=== PATIENT | male | born 2005 | race Caucasian/White ===

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

== ENCOUNTER 2025-06-24 11:20 | Emergency (ER) | payer BC, SELFPAY ==
--- OUTSIDE RECORDS SUMMARY | 2025-06-24 11:22 | XMS_ITS | Clinical Summary ---
Author Organization [facility] Address [address] [place] [address] Care Team Providers Care Time Clerk Name Role Phone Lizeth Dominguez MD Primary Care Provider Source Comments [facility],non-owned Affiliates and Associated Physician Practices is amultiple site organization consisting of ambulatory clinics and hospital sitesin [place], [place], [place] and [place]. This disclosure is being madepursuant to the Care Everywhere program and may not contain all information available regarding this patient. Last updated 18.[facility] [employer] Allergies No known active allergies Medications * Be aware that medications may not be up to date on this document. Alwaysverify current medications with the patient. No known medications Active Problems Problem Noted Date Diagnosed Date Closed fracture of right distal fibula 9 Social History Tobacco Use Types Packs/Day Years Used Date Smoking Tobacco: Passive Smo ke Exposure - Never Smoker Smokeless Tobacco: Never Sex and Gender Information Value Date Recorded Sex Assigned at Not on file Legal Sex Male 10:55 AM CDT Gender Identity Not on file Sexual Orientation Not on file Last Filed Vital Signs Vital Sign Reading Time Taken Comments Blood Pressure - - Pulse - - Temperature - - Respiratory Rate - - Oxygen Saturation - - Inhaled Oxygen Concentration - - Weight 60.1 kg (132 lb 7.9 oz) 01/20/2019 1:50 P M CDT Height 172 cm (5' 7.72) 01/20/2019 1:50 PM CDT Body Mass Index 20.31 01/20/2019 1:50 PM CDT Plan of Treatment Health Maintenance Due Date Last Done Comments HIV SCREENING 2019 HPV VACCINE (1 - Male 3-dose series) 2019 MENINGOCOCCAL (Group B) VACC INE SHARED DECISION-MAKING (1 of 2 - Standard) 2020 HEPATITIS C SCREENING 08/29/2022 DTAP/TDAP/TD VACCINES (1 - Tdap) 2023 HEPATITIS B VACCINE (1 of 3 - 19+ 3-dose series) 2023 DEPRESSION SCREENING 07/13/2024 COVID-19 VACCINE (1 - 2024-2 6 season) 2025 INFLUENZA VACCINE (#1) 2025 ZOSTER VACCINE (1 of 2) 2054 HIB VACCINE Aged Out No longer eligi ble based on patient's age to complete this topic MENINGOCOCCAL GROUPS A/C/Y/W VACCINE Aged Out No longer eligible b ased on patient's age to complete this topic PNEUMOCOCCAL VACCINE Aged Out No long er eligible based on patient's age to complete this topic Insurance [facility] Care Teams Time Clerk Relationship Specialty Start Date End Date Lizeth Dominguez MD PCP - General Pediatrics 01/20/19
--- OUTSIDE RECORDS SUMMARY | 2025-06-24 11:22 | XMS_ITS | Clinical Summary ---
Author Organization [facility] Address [address] [place] [address] Phone Care Team Providers Care Animal Doctor Name Role Phone Eitan Chahal MD Primary Care Provider Allergies No known active allergies Medications carbamide peroxide (DEBROX) 6.5 % Solution Place 5 Drops in affected ear(s) 2 times daily as needed (ear wax). 15 mL 03/22/2022 Active ketorolac (TORADOL) 10 MG Tablet Take 1 Tablet by mouth every 6 hours as needed for Moderate or more severe pain. 20 Tablet 03/20/2023 Active Active Problems No known active problems Social History Tobacco Use Types Packs/Day Years Used Date Smoking Tobacco: Never Smokeless Tobacco: Never Alcohol Use Standard Drinks/Week Comments No 0 (1 standard drink = 0.6 oz pur e alcohol) Sexually Active Control Partners Comments Never Sex and Gender Information Value Date Recorded Sex Assigned at Not on file Legal Sex Male 12:25 AM CDT Gender Identity Not on file Sexual Orientation Not on file Last Filed Vital Signs Vital Sign Reading Time Taken Comments Blood Pressure 109/59 03/20/2023 5:45 PM CDT Pulse 68 03/20/2023 5:45 PM CDT Temperature 36.5 C (97.7 F) 03/20/2023 4:59 PM CDT Respiratory Rate 19 03/20/2023 4:59 PM CDT Oxygen Saturation 100% 03/20/2023 5:45 PM CDT Inhaled Oxygen Concentration - - Weight 65.8 kg (145 lb) 03/20/2023 4:59 PM CDT Height 177.8 cm (5' 10) 03/20/2023 4:59 PM CDT Body Mass Index 20.81 03/20/2023 4:59 PM CDT Plan of Treatment Health Maintenance Due Date Last Done Comments Hepatitis C Virus (HCV) Screening 2004 Human Papillomavirus (HPV) Immunization (2 - Male 2-dose series) 08/26/2019 02/23/2019 Meningococcal B Immunization (1 of 2 - Standard) 2020 Influenza Immunization (#1) 03/13/202504/13, 04/19/2009, 06/26/2005, Additional history exists SARS-COV-2 Immunization (1 - 2024- season) 2025 Respiratory Syncytial Virus (RSV) Immunization (Adult) (1 - 1-dose 75+ series) 2079 Hepatitis B Immunization Completed 005, 2004, 2004 Pneumococcal Immunization Combined Aged Out 10/30/2005, 05/22/2005, 2004, Additional history exists No longer eligible based on patient's age to complete this topic Measles Mumps Rubella (MMR) Immunization Discontinued 04/19/2009, 10/30/2005 Polio (IPV) Immunization Discontinued 009, 05/22/2005, 2004, Additional history exists Varicella Immunization Completed 04/19/2009, 2005 Hepatitis A Immunization Discontinued 04/11/2015, 04/13 DTaP/Tdap/Td Immunization Discontinued 2015, 04/19/2009, 01/22/2006, Additional history exists Meningococcal Immunization (ACWY) Aged Out 09/12/2015 No longer eligible based on patient's age to complete this topic TdaP Immunization Completed 09/12/2015 Rotavirus Immunization Aged Out No lo nger eligible based on patient's age to complete this topic Insurance MEDICAID [facility] Care Teams Animal Doctor Relationship Specialty Start Date End Date Eitan Chahal MD [address] [place] [address] PCP - General Family Medicine 03/20/23
--- OUTSIDE RECORDS SUMMARY | 2025-06-24 11:22 | XMS_ITS | Clinical Summary ---
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 Name Role Phone Shayna Figueroa NP Unavailable [phone] Katie Soto NP Primary Care Provider [phone] Allergies Active Allergy Reactions Criticality Noted Date Comments Venom-Wasp Medications albuterol HFA (PROVENTIL HFA,VENTOLIN HFA,PROAIR HFA) 90 mcg/actuation inhalerIndicatio ns:Mild intermittent asthma without complication Inhale 2 puffs every 6 (six) hours as needed for shortness of breath or wheezing 1 each 1 2 Active doxepin (SINEquan) 10 mg capsule 1 CAPSULE PO EACH EVENING 30 capsule 3 3 Active Additional Information Patient not taking.Reported on 03/30/2023 SUMAtriptan (IMITREX) 100 mg tabletIndication s:Migraine 1 TAB PO AT ONSET of HEADACHE, MAY REPEAT DOSE AFTER 2 HOURS IF NEEDED. LIMIT of 2 DOSES per DAY. 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 Has had no workup. Refer to sleep medicine, who agreed to see him. We discussed that sleep can affect multiple systems and can be one cause of headaches. Migraine without aura and wi thout status migrainosus, not intractable 05/08/2022 Assessment & Plan (03/30/2023 3:51 PM CDT): Patient has hx of chronic migraines, was supposed to follow up with Neuro in 01/2023 but he did not. Discussed reaching out and rescheduling the appointment as he continues to have his normal headaches. Assessment & Plan (05/08/2022 1:54 PM CDT): Will trial cyproheptadine 4mg nightly for headaches. Also gave maxalt 10mg prn onset of headache. Instructions for medications reviewed. Refer to pediatric neurology. F/u [address] Smith for recheck S/P tonsillectomy and adenoidectomy 03/22/2021 History of fracture of left ankle 03/22/2021 Assessment & Plan (03/22/2021 8:18 AM CDT): - around 2017, while playing baseball - no surgical intervention, had to wear a case Astigmatism 03/22/2021 Assessment & Plan (05/08/2022 2:00 PM CDT): History of astigmatism but does not wear glasses. States he doesn't need them. Last eye exam last year. Recommended he get updated eye exam to r/o vision problems for cause of headaches. Assessment & Plan (03/22/2021 8:20 AM CDT): - does not wear glasses although he has been prescribed one Mild intermittent asthma without complication Assessment & Plan (03/30/2023 3:50 PM CDT): Stable overall, rarely uses prn inhaler. Assessment & Plan (04/09/2022 2:19 PM CDT): - chronic, stable - has rescue inhaler, albuterol - no recent exacerbation - aggravated with allergies - continue current therapy Assessment & Plan (03/22/2021 8:25 AM CDT): - has rescue inhaler, albuterol - no recent exacerbation - aggravated with allergies - continue current therapy Bee sting allergy 03/22/2021 Assessment & Plan (03/22/2021 8:25 AM CDT): - has epi-pen at home for use - has never had to use it Encounter for well child check without abnormal findings 03/22/2021 Assessment & Plan (04/09/2022 2:28 PM CDT): - Acute concerns: no significant acute issues on this visit - Mental health: no significant psychiatric/mental health conditions affecting her day to day functioning - Dental health: Up to date with dental care, Discussed importance of regular tooth brushing, flossing, and dental visits. - Nutrition: Stressed importance of moderation in sodium/caffeine intake, saturated fat and cholesterol, caloric balance, sufficient intake of fresh fruits, vegetables. Weight loss noted of about 15 lbs. 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 - Nutrition: Stressed importance of moderation in sodium/caffeine intake, saturated fat and cholesterol, caloric balance, sufficient intake of fresh fruits, vegetables - Exercise: Stressed the importance of regular exercise, goal would be - Immunizations: Age and sex appropriate immunizations reviewed and offered Will obtain records, signed release of information. - discussed importance of safe sex practices - discussed abstaining from drugs of abuse Resolved Problems Problem Noted Date Diagnosed Date Resolved Date Toe infection 03/22/2021 04/09/2022 Assessment & Plan (03/22/2021 8:37 AM CDT): - doing well at this time, improving - finish the antibiotics prescribed Keflex + Bactrim Immunizations Immunization Administration Dates Next Due DTaP 01/22/2006 DTaP / Hep B / IPV 05/22/2005,2004, 005 DTaP / IPV 04/19/2009 HPV9 02/23/2019 Hep A, Ped Unspecified 05/06/2010 Hep A, Pediatric 04/11/2015 HiB 01/22/2006,05/22/2005,2004 ,2004 Influenza, Unspecified 05/16/2022(Deferr ed: Patient Refused),04/12/2021(Deferred: Patient Refused),04/12/2021(Deferred: Patient Refused),03/13/2021(Deferred: Patient Refused),04/12/2020(Deferred: Patient Refused),05/06/2010,04/19/2009,06/26/2005,1 2004 MMR 04/19/2009,10/30/2005 Meningococcal Conjugate (Menveo) 09/12/2015 Meningococcal MCV4P (Menactra) 04/09/2022 Pneumococcal Conjugate 7-Valent 10/30/2005,05/22,2004,2004 Tdap 09/12/2015 Varicella 04/19/2009,10/30/2005 Surgical History Surgery Date Site/Laterality Comments TONSILLECTOMY AND ADENOIDECTOMY TYMPANOSTOMY TUBE PLACEMENT Medical History Medical History Date Comments Asthma Family History Medical History Relation Name Comments No Known Problems Father Hypertension Maternal Grandfather Hypertension Mother No Known Problems Sister Relation Name Status Comments Father Maternal Grandfather Alive Maternal Grandmother Alive Mother Alive Sister Alive Social History Tobacco Use Types Packs/Day Years Used Date Smoking Tobacco: Never Smokeless Tobacco: Never Tobacco Cessation:Counseling Given: No PHQ-2 Answer Date Recorded PHQ-2 Total Score (If total score is 3 or more points, staff should administer the PHQ-9) 0 05/16/2022 Personal Safety Answer Date Recorded Getting School Help Needed Not on file 07/10 Sex and Gender Information Value Date Recorded Sex Assigned at Not on file Legal 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 Gender Identity Not on file Sexual Orientation Not on file Last Filed Vital Signs Vital Sign Reading Time Taken Comments Blood Pressure 110/70 03/30/2023 3:30 PM CDT Pulse 78 03/30/2023 3:30 PM CDT Temperature 36 C (96.8 F) 03/30/2023 3:30 PM CDT Respiratory Rate 14 03/30/2023 3:30 PM CDT Oxygen Saturation 98% 03/30/2023 3:30 PM CDT Inhaled Oxygen Concentration - - Weight 63.5 kg (140 lb) 03/30/2023 3:30 PM CDT Height 177.8 cm (5' 10) 03/30/2023 3:30 PM CDT Body Mass Index 20.09 03/30/2023 3:30 PM CDT Plan of Treatment Health Maintenance Due Date Last Done Comments Hepatitis C Screening 2004 Pneumococcal vaccine <65 (1 of 1 - PPSV23, PCV20, or PCV21) 2010 10/30/2005, 05/22/2005, 2004, Additional history exists HPV Vaccines (2 - Male 2-dos e series) 08/26/2019 02/23/2019 Meningococcal B Vaccine (1 o f 2 - Standard) 2020 Regular Well Visit/Exam 18-64 2022 Depression Screening 05/16/2023 05/16/2022, 05/08/2022, 04/09/2022, Additional history exists Influenza Vaccine (#1) 2025 0, 04/19/2009, 06/26/2005, Additional history exists DTaP/Tdap/Td Vaccine (7 - Td or Tdap) 09/11/2025 09/12/2015, 04/19/2009, 01/22/2006, Additional history exists Hepatitis B Screening Completed 05/22/2005 , 2004, 2004 Varicella Vaccines Completed 04/19/2009, 10/30/2005 Meningococcal Vaccine Completed 04/09/2022, 016 Insurance [facility] Care Teams Toy Electric Train Repairer Relationship Specialty Start Date End Date Katie Soto NP [phone] [address] PCP - General Family Medicine 03/23/23 Shayna Figueroa NP Nurse Practitioner Family Medicine 05/09/22
[2025-06-24 11:38] VITALS: BP 119/80; PULSE 86; RESP 20; TEMP 36.2; O2SAT 99
[2025-06-24 12:17] LABS: EDCOVIDSCREEN Negative (Negative)
[2025-06-24 12:17] LABS: EDINFLUASCREEN Negative (Negative); EDINFLUBSCREEN Negative (Negative)
--- NOTE | 2025-06-24 12:34 | ED.URI ---
HPI - URI/Sore Throat General Chief Complaint: Upper Respiratory Infection Stated Complaint: needs note work Time Seen by Provider: 06/24/25 12:26 Source: patient and RN notes reviewed Mode of arrival: ambulatory Limitations: no limitations History of Present Illness HPI Narrative: 19-year-old male patient with history of asthma presents today with a 3 day history of nasal congestion, body aches, fatigue, cough, fever with a T-max of 101?, and intermittent shortness of breath. He presents requesting a work note. He has used a few albuterol nebulizer treatments at home with short-term relief. No other OTC treatments prior to arrival. Related Data Home Medications ?Medication ?Instructions ?Recorded ?Confirmed ?Last Taken ?Type No Home Medications 09/24/23 09/24/23 Unknown History Allergies Allergy/AdvReac Type Severity Reaction Status Date / Time bee venom protein (honey Allergy Swelling Verified 06/24/25 11:44 bee) (bees) PMFSH Past Medical History Medical History Hx of migraines Asthma Surgical History Surgical History History of placement of ear tubes History of tonsillectomy Family History Family History Other Heart disease Hypertension Social History Social History Smoking status: Current every day smoker Tobacco type: e-cigarettes/vaping Alcohol intake: unknown Substance use type: does not use Living arrangements: with family Gender identity (if verbalized by the patient): Male Comments At time of signature, I have reviewed and agree with nursing past medical, surgical, social and family history unless otherwise noted. Please see nursing chart for further information. There is no relevant family history pertinent to the presenting complaint Exam Narrative: GENERAL: Well-appearing, well-nourished, and in no acute distress. HEAD: Normocephalic, atraumatic. EYES: EOMI. No redness or drainage. Conjunctivae normal. ENT: Mucous membranes pink and moist. Nares congested. No rhinorrhea. TMs normal bilaterally. Throat mildly erythematous without edema or exudate. Uvula midline. NECK: Normal AROM. Supple. No lymphadenopathy. CHEST: No respiratory distress. Clear to auscultation. HEART: Regular rate and rhythm. No murmur appreciated. EXTREMITIES: Normal range of motion. No edema. SKIN: Warm, dry, no rash. Capillary refill normal. Normal skin turgor. NEURO: No focal deficits. Alert and oriented x3. Gait steady. PSYCH: Normal affect. No signs of depression or anxiety. Course Course Level of Care: Express Care Visit Vital Signs Vital signs: Vital Signs Temperature 97.1 F L 06/24/25 11:38 Pulse Rate 86 06/24/25 11:38 Respiratory Rate 20 06/24/25 11:38 Blood Pressure 119/80 06/24/25 11:38 Pulse Oximetry 99 06/24/25 11:38 Oxygen Delivery Room Air 06/24/25 11:38 Temperature 97.1 F L 06/24/25 11:38 Pulse Rate 86 06/24/25 11:38 Respiratory Rate 20 06/24/25 11:38 Blood Pressure 119/80 06/24/25 11:38 Pulse Oximetry 99 06/24/25 11:38 Oxygen Delivery Room Air 06/24/25 11:38 Reviewed MDM MDM Narrative Medical decision making narrative: 19-year-old male patient with history of asthma presents today with a 3 day history of nasal congestion, body aches, fatigue, cough, fever with a T-max of 101?, and intermittent shortness of breath. He presents requesting a work note. He has used a few albuterol nebulizer treatments at home with short-term relief. No other OTC treatments prior to arrival. Upon exam, patient has some nasal congestion and mildly erythematous throat. Lung auscultation normal. COVID-19 and influenza testing negative. Patient declined prednisone burst for his shortness of breath/asthma exacerbation related to viral illness. Symptoms likely viral in etiology. Discussed [id number] medication use and duration of illness. Anticipatory guidance given. Vital signs stable. Differential Diagnosis Differential Diagnosis: URI, COVID-19, influenza, asthma exacerbation, pneumonia Lab Data Labs: Lab Results 06/24/25 06/24/25 Range/Units 11:51 12:00 POC Influenza A Ag Negative (Negative) POC Influenza B Ag Negative (Negative) POC SARS CoV-2 Ag Negative (Negative) Critical Care Time Critical Care Time Critical Care Time: No Discharge Plan Discharge Clinical Impression: Viral syndrome Asthma exacerbation Qualifiers: Asthma severity: unspecified severity Asthma persistence: unspecified Qualified Code(s): J45.901 - Unspecified asthma with (acute) exacerbation Patient Disposition: Home Condition: Stable Instructions: Viral Syndrome (ED) Additional Instructions: Your COVID-19 and influenza swabs are negative today. Your Symptoms are likely due to a viral illness, which is not treated with antibiotics. Virus symptoms can last for up to 7-10days. Take Tylenol or ibuprofen for pain or fever. Consider Mucinex for chest congestion. Continue your nebulizer treatments as needed for shortness of breath/wheezing. Rest and stay hydrated. Follow up with your PCP in 7 days if symptoms are not improving. Go to the ER immediately if you develop shortness of breath, difficulty swallowing, or any other concerning symptoms. Patient Language: Italian Prescriptions: No Action No Home Medications Follow-up/Referrals: Charles,Katie Thompson APRN [Primary Care Provider, Unknown] Stand Alone Forms: Work/School Release IP Time of Disposition: 12:39
== END 2025-06-24 12:42 | disposition home or self-care (01) ==
PROVIDERS: Emergency Provider Nurse Practitioner; PCP Nurse Practitioner Family
DX: B34.9 Viral infection, unspecified (principal); J45.901 Unspecified asthma with (acute) exacerbation; Z20.822 Contact with and (suspected) exposure to COVID-19; F17.290 Nicotine dependence, other tobacco product, uncomplicated
CPT/HCPCS: 87426; 87804; 99212; G0463

== ENCOUNTER 2025-06-26 10:08 | Emergency (ER) | payer BC, SELFPAY ==
[2025-06-26 10:12] VITALS: BP 129/67; PULSE 78; RESP 14; TEMP 36.9; O2SAT 100
--- NOTE | 2025-06-26 10:29 | ED_ITS ---
HPI - Eye Problem General Chief complaint: Eye Problems Stated complaint: poss pink eyerusting today with some pain to the Time Seen by Provider: 06/26/25 10:29 Source: patient, RN notes reviewed and old records reviewed Mode of arrival: ambulatory Limitations: no limitations History of Present Illness HPI Narrative: 19 year old male accompanied by family presents to express care with right eye redness and drainage with crusting voiced this morning with some mild swelling to his right eye noted since last night Patient reports that his right eye is painful and has frequent watering from his eye. Patient also has some redness to the left eye but no drainage or discomfort voiced to the eye. Patient reports no trauma to eyes or any feeling of foreign body. MD chief complaint: eye redness and other (drainage) Onset (ago): day(s) (last night) Onset description: gradual Duration: constant Eye Symptoms: redness, pain and discharge Treatments Prior to Arrival: other (warm compresses) Related Data Allergies Allergy/AdvReac Type Severity Reaction Status Date / Time bee venom protein (honey Allergy Swelling Verified 06/26/25 10:17 bee) (bees) Review of Systems Review of Systems: CONSTITUTIONAL: Denies fever, chills, or sweats. EYES: Denies visual changes. Reports redness, irritation, discharge from right eye which started last night with crusting this morning, left eye also starting to get red today. ENT: Denies rhinorrhea, congestion, sore throat, or otalgia. CARDIOVASCULAR: Denies chest pain, palpitations, or edema. RESPIRATORY: Denies cough or dyspnea. SKIN: Denies rash or itching. NEUROLOGIC: Denies headache All systems reviewed & are unremarkable except as noted in HPI and below PMFSH Past Medical History Medical History Hx of migraines Asthma Surgical History Surgical History History of placement of ear tubes History of tonsillectomy Family History Family History Other Heart disease Hypertension Social History Social History Smoking status: Current every day smoker Tobacco type: e-cigarettes/vaping Alcohol intake: unknown Substance use type: does not use Living arrangements: with family Gender identity (if verbalized by the patient): Male Comments At time of signature, agree with nursing past medical, surgical, social and family history. There is no relevant family history pertinent to the presenting complaint Exam Narrative: GENERAL: Well-appearing, well-nourished, and in no acute distress. HEAD: Normocephalic, atraumatic. EYES: PERRLA and EOMI. Upper and lower eyelids unremarkable. No periorbital cellulitis noted. Sclera and conjunctivae injected to right eye with mucoid drainage and voices some discomfort to right eye. Left eye is showing some redness today also. Patient has minimal swelling of the right eye, Visual acuity right 20/40, Left 20/40 without correction. Patient reports that he is suppose to wear glasses but he doesn't. ENT: Nares clear, no rhinorrhea or epistaxis. Mucous membranes moist. NECK: Supple.no lymphadenopathy CHEST: Clear to auscultation. No respiratory distress.no cough noted SAO2 100% on room air HEART: Regular rate and rhythm. No murmur heard. Normal peripheral pulses. SKIN: Warm, dry, no rash. NEURO: No focal deficits. Alert and oriented x3. Course Course Level of Care: Express Care Visit Vital Signs Vital signs: Vital Signs Temperature 36.9 C 06/26/25 10:12 Pulse Rate 78 06/26/25 10:12 Respiratory Rate 14 06/26/25 10:12 Blood Pressure 129/67 06/26/25 10:12 Pulse Oximetry 100 06/26/25 10:12 Oxygen Delivery Room Air 06/26/25 10:12 Temperature 36.9 C 06/26/25 10:12 Pulse Rate 78 06/26/25 10:12 Respiratory Rate 14 06/26/25 10:12 Blood Pressure 129/67 06/26/25 10:12 Pulse Oximetry 100 06/26/25 10:12 Oxygen Delivery Room Air 06/26/25 10:12 reviewed MDM MDM Narrative Medical decision making narrative: Patient has redness drainage and discomfort to the right eye with also some redness starting to the left eye,no visual changes noted or acute pain. Will treat with ofloxacin eye drops to right eye and also recommend use to left eye also, strict hand hygiene recommended and symptomatic treatment with oral Tylenol and Ibuprofen for discomfort with follow up with ophthalmology if no improvement in 48 hours. Anticipatory guidance and reasons to seek care in ED reviewed with patient and family member.with understanding voiced Differential Diagnosis Differential Diagnosis: Differential diagnostic considerations fPor eye problems include corneal abrasion, conjunctivitis, acute iritis, hyphemia, periorbital cellulitis, subconjunctival hemorrhage, glaucoma, corneal ulcer, ruptured globe, foreign body in eye.? Critical Care Time Critical Care Time Critical Care Time: No Discharge Plan Discharge Clinical Impression: Conjunctivitis Qualifiers: Conjunctivitis type: acute Acute conjunctivitis type: unspecified Laterality: bilateral Qualified Code(s): H10.33 - Unspecified acute conjunctivitis, bilateral Patient Disposition: Home Condition: Stable Instructions: Conjunctivitis (ED) Additional Instructions: Cold compresses to the eyes for comfort May need warm compresses to remove debris in the morning When cleaning the eyes used a washcloth in one direction then change washcloths or use a cotton ball in one direction and then his cotton balls Eyedrops as directed--may be more soothing if left in the refrigerator Do not share medicine--do not touch the eye with the medicine Tylenol or ibuprofen for pain Avoid screen time--television, computer, tablet or phone. Also no reading or driving Follow-up with PCP or trailhead construction worker as directed if no improvement in 48 hours If your symptoms persist, change or worsen significantly before you can conta ct your personal physician then please, without delay, go to the emergency department for further evaluation. Follow-up with PCP in 7-10 days or sooner if needed Follow up with PCP soon in regards to your blood pressure which is elevated above threshold for referral. Blood pressure above 120/80 may indicate pre- hypertension. minimal elevation 129/67 Patient Language: Romanian Prescriptions: New ofloxacin 0.3 % drops See Rx Instructions .ROUTE .COMPLEX Qty: 10 0RF Rx Instructions: put 1-2 drps into affected eye(s) every 2-4 h x 2 days, then 1-2 drps 4 times/day days 3-7 Follow-up/Referrals: Charles,Katie Thompson APRN [Primary Care Provider, Unknown] Stand Alone Forms: Work/School Release IP Time of Disposition: 10:38 Quality [place] Coma Scale Eyes: Open Verbal: Oriented and Alert Motor: Follows Commands Marshal Coma Total Score: 15
== END 2025-06-26 10:40 | disposition home or self-care (01) ==
PROVIDERS: Emergency Provider Registered Nurse; PCP Nurse Practitioner Family
DX: H10.33 Unspecified acute conjunctivitis, bilateral (principal); F17.290 Nicotine dependence, other tobacco product, uncomplicated; J45.909 Unspecified asthma, uncomplicated
CPT/HCPCS: 99213; G0463